=== PATIENT | female | born 1990 | race Caucasian/White ===

== ENCOUNTER 2020-03-15 11:05 | Observation (INO) | payer OTHER ==
[2020-03-15 12:11] VITALS: BP 106/66; PULSE 75
== END 2020-03-15 12:34 | disposition home or self-care (01) ==
LOC: OB 11:05
PROVIDERS: ADMIT Family Medicine; ATTEND Family Medicine
DX: Z34.03 Encounter for supervision of normal first pregnancy, third trimester (principal); Z3A.34 34 weeks gestation of pregnancy
CPT/HCPCS: 59025; 81003; G0378

== ENCOUNTER 2020-03-18 06:50 | Observation (INO) | payer OTHER ==
[2020-03-18 07:38] VITALS: BP 107/60; PULSE 80; O2SAT 97
--- NOTE | 2020-03-18 09:06 | XRAY ---
Indication: Gestational diabetes. Two-dimensional OB ultrasound performed. Comparison: March 03, 2020. Again there is a single viable intrauterine in cephalic presentation. heart rate 135 BPM. anatomy previously documented. Again anterior placenta without abruption/previa. BPD measures 8.45 cm corresponding to 34 weeks 0 days. HC measures 30.83 cm corresponding to 34 weeks 3 days. AC measures 29.12 cm corresponding to 33 weeks 1 days. FL measures 6.47 cm corresponding to 33 weeks 3 days. Estimated weight 4 lbs. 13 oz., +/-12 ounces. Approximately 18th percentile. CALLY is 13 cm. Impression: Again single viable intrauterine with mean gestational age 33 weeks 5 days. Normal progression of . No new or acute findings.
== END 2020-03-18 08:35 | disposition home or self-care (01) ==
LOC: OB 06:50
PROVIDERS: ADMIT Family Medicine; ATTEND Family Medicine
DX: O24.419 Gestational diabetes mellitus in pregnancy, unspecified control (principal); Z3A.34 34 weeks gestation of pregnancy
CPT/HCPCS: 59025; 76816; G0378

== ENCOUNTER 2020-03-18 07:25 | Observation (INO) | payer OTHER ==
[2020-03-25 09:21] VITALS: BP 97/59; PULSE 68
--- NOTE | 2020-03-25 09:27 | XRAY ---
Indication: growth. CALLY. Gestational diabetes. Two-dimensional OB ultrasound performed. Comparison: March 18, 2020. Again there is a single viable intrauterine in cephalic presentation. heart rate 155 BPM. anatomy previously documented. Again anterior placenta without abruption/previa. BPD measures 8.71 cm corresponding to 35 weeks 1 days. HC measures 31.25 cm corresponding to 35 weeks 0 days. AC measures 31.10 cm corresponding to 35 weeks 0 days. FL measures 6.68 cm corresponding to 34 weeks 3 days. Estimated weight 5 lbs. 9 oz., +/-13 ounces. Approximately 33 percentile. CALLY is 11.3 cm. Impression: Again single viable intrauterine with mean gestational age 34 weeks 6 days. Normal progression of . No new or acute findings.
== END 2020-03-25 09:55 | disposition home or self-care (01) ==
LOC: OB 03-25 07:54 → EDSTATUS 03-25 07:54
PROVIDERS: ADMIT Family Medicine; ATTEND Family Medicine
DX: O24.410 Gestational diabetes mellitus in pregnancy, diet controlled (principal)
CPT/HCPCS: 59025; 76816; G0378

== ENCOUNTER 2020-03-21 06:58 | Observation (INO) | payer OTHER ==
[2020-03-21 07:33] VITALS: BP 102/59; PULSE 83
== END 2020-03-21 08:40 | disposition home or self-care (01) ==
LOC: OB 06:58
PROVIDERS: ADMIT Family Medicine; ATTEND Family Medicine
DX: O24.419 Gestational diabetes mellitus in pregnancy, unspecified control (principal); Z3A.34 34 weeks gestation of pregnancy
CPT/HCPCS: 59025; G0378

== ENCOUNTER 2020-03-29 09:57 | Observation (INO) | payer OTHER ==
[2020-03-29 10:43] VITALS: BP 100/64; PULSE 80
== END 2020-03-29 11:15 | disposition home or self-care (01) ==
LOC: MED SURG 09:57 → UNDOADMOB 09:57 → UNDODISOB 11:15
PROVIDERS: ADMIT Family Medicine; ATTEND Family Medicine
DX: O24.419 Gestational diabetes mellitus in pregnancy, unspecified control (principal); Z3A.36 36 weeks gestation of pregnancy
CPT/HCPCS: 59025; G0378

== ENCOUNTER 2020-04-01 08:56 | Observation (INO) | payer OTHER ==
[2020-04-01 09:48] VITALS: BP 103/58; PULSE 90
--- NOTE | 2020-04-01 09:50 | XRAY ---
Indication: Gestational diabetes. Evaluate CALLY. Limited OB ultrasound demonstrates a single viable intrauterine with heart rate 139 BPM. Four-quadrant CALLY is 11.6 cm. This was 11.3 cm March 25, 2020.
== END 2020-04-01 10:20 | disposition home or self-care (01) ==
LOC: EDSTATUS 08:56 → OB 08:57
PROVIDERS: ADMIT Family Medicine; ATTEND Family Medicine
DX: O24.410 Gestational diabetes mellitus in pregnancy, diet controlled (principal); Z3A.36 36 weeks gestation of pregnancy
CPT/HCPCS: 59025; 76815; G0378

== ENCOUNTER 2020-04-05 09:50 | Observation (INO) | payer OTHER ==
[2020-04-05 10:23] VITALS: BP 108/57; PULSE 66; O2SAT 97
== END 2020-04-05 10:50 | disposition home or self-care (01) ==
LOC: OB 09:50
PROVIDERS: ADMIT Family Medicine; ATTEND Family Medicine
DX: O24.419 Gestational diabetes mellitus in pregnancy, unspecified control (principal)
CPT/HCPCS: 59025; G0378

== ENCOUNTER 2020-04-08 08:25 | Observation (INO) | payer OTHER ==
[2020-04-08 10:07] VITALS: BP 106/61; PULSE 71
--- NOTE | 2020-04-08 22:04 | XRAY ---
Exam: Limited OB ultrasound exam for CALLY from 04/08/2020. Comparison: Limited OB ultrasound examination from 04/01/2020. Indication: 30-year-old female with gestational diabetes. The exam is being performed for amniotic fluid index. Findings: The fetus is in the cephalic position with a heart rate of 139 bpm. Amniotic fluid index measures 10.24 cm, previously 11.57 cm on 04/01/2020. This is still within normal limits of range. Impression: 1. 4 quadrant amniotic fluid index measures 10.24 cm, previously 11.57 cm on 04/01/2020. This is still within normal limits.
== END 2020-04-08 10:15 | disposition home or self-care (01) ==
LOC: RAD 08:25 → EDSTATUS 08:32 → OB 08:33
PROVIDERS: ADMIT Family Medicine; ATTEND Family Medicine
DX: O24.410 Gestational diabetes mellitus in pregnancy, diet controlled (principal); Z3A.37 37 weeks gestation of pregnancy
CPT/HCPCS: 59025; 76815; G0378

== ENCOUNTER 2020-04-12 09:59 | Observation (INO) | payer OTHER ==
[2020-04-12 11:24] VITALS: PULSE 71
== END 2020-04-12 10:57 | disposition home or self-care (01) ==
LOC: OB 09:59
PROVIDERS: ADMIT Family Medicine; ATTEND Family Medicine
DX: O24.419 Gestational diabetes mellitus in pregnancy, unspecified control (principal); Z3A.38 38 weeks gestation of pregnancy
CPT/HCPCS: 59025; 81003; G0378

== ENCOUNTER 2020-04-15 08:56 | Observation (INO) | payer OTHER ==
--- NOTE | 2020-04-15 09:39 | XRAY ---
Indication: Gestational diabetes. Evaluate CALLY. Limited OB ultrasound demonstrates single viable intrauterine with heart rate 142 bpm. 4 quadrant CALLY is 13.6 cm. This was 10.2 cm on April 08, 2020.
[2020-04-15 10:00] VITALS: BP 107/59; PULSE 85
== END 2020-04-15 10:15 | disposition home or self-care (01) ==
LOC: OB 08:56
PROVIDERS: ADMIT Family Medicine; ATTEND Family Medicine
DX: O24.419 Gestational diabetes mellitus in pregnancy, unspecified control (principal); Z3A.38 38 weeks gestation of pregnancy
CPT/HCPCS: 59025; 76815; G0378

== ENCOUNTER 2020-04-18 07:17 | Inpatient (IN) | payer OTHER ==
[2020-04-18] MEDS ORDERED: PITOCIN 30 UNITS/ LR 500 ML 30 UNITS/500 ML IV.SOLN. IV SCH (17:00)
[2020-04-18] MEDS ORDERED: Cervidil 10 MG VAG SCH (18:00)
[2020-04-18] MEDS ORDERED: TYLENOL EXTRA STRENGTH 500 MG PO PRN (18:00)
[2020-04-18] MEDS ORDERED: BRETHINE 1 MG/ML SQ PRN (18:00)
[2020-04-18 18:49] LABS: Absolute Neutrophil Ct (ANC) 8.55 (1.4-6.9); BASOPHIL % 0.2 % (0.0-0.4); Basophil (Absolute #) 0.03 (0-0.4); Eosinophil % 1.5 % (0.00-5.0); Eosinophil (Absolute #) 0.19 (0-0.5); Hematocrit 34.9 % (35-47); Hemoglobin 11.2 gm/dl (12.0-16.0); Lymphocyte (Absolute #) 2.96 (1.0-4.6); Lymphocytes % 23.7 % (24.0-44.0); Mean Cell Volume 94.3 fl (78-100); Mean Corpuscular Hemoglobin 30.3 pg (26-32); Mean Corpuscular Hgb Concent. 32.1 g/dl (32-36); Mean Platelet Volume 10.2 fl (7.5-11.0); Monocyte (Absolute #) 0.76 (0.0-1.3); Monocytes % 6.1 % (0.0-12.0); Neutrophil % 68.5 % (36.0-66.0); Platelet Count 331 K/mm3 (150-450); Red Cell Distribution Width 14.3 % (11.5-14.0); White Blood Count 12.5 K/mm3 (4.0-10.5)
[2020-04-18 21:53] LABS: Amphetamine,Urine NEGATIVE (NEGATIVE); Barbiturate,Urine NEGATIVE (NEGATIVE); Benzodiazepine,Urine NEGATIVE (NEGATIVE); Cocaine,Urine NEGATIVE (NEGATIVE); Methadone,Urine NEGATIVE (NEGATIVE); Opiate,Urine NEGATIVE (NEGATIVE); PCP,Urine NEGATIVE (NEGATIVE); THC,Urine NEGATIVE (NEGATIVE)
[2020-04-18 22:12] LABS: Appearance CLEAR (CLEAR); Bilirubin NEGATIVE (NEGATIVE); Blood NEGATIVE Ery/ul (0-5); Epithelial Cells RARE /HPF (FEW); Glucose NEGATIVE (NEGATIVE); Ketones TRACE (NEGATIVE); Leukocyte Esterase NEGATIVE (NEGATIVE); Nitrite NEGATIVE (NEGATIVE); Protein,Urine Dip NEGATIVE (Negative); Specific Gravity 1.019 (1.005-1.025); Urobilinogen NEGATIVE mg/dL (0-1)
[2020-04-19] MEDS ORDERED: PITOCIN 30 UNITS/ LR 500 ML 30 UNITS/500 ML IV.SOLN. IV SCH (08:00)
[2020-04-19] MEDS ORDERED: XYLOCAINE 1% HCL 20 ML MDV IJ PRN (08:00)
[2020-04-19] MEDS ORDERED: Lactated Ringers 1,000 ML IV SCH (08:00)
[2020-04-19] MEDS ORDERED: OB EPIDURAL NAROPIN/SUFENTANIL IN NACL EPIDURAL PRN (10:00)
[2020-04-19] MEDS ORDERED: Lactated Ringers 1,000 ML IV ONE (10:00)
[2020-04-19] MEDS ORDERED: Ephedrine Sulfate 50 MG/ML IV PRN (10:00)
[2020-04-19] MEDS ORDERED: CORTISONE 1% CREAM TP PRN (11:43)
[2020-04-19] MEDS ORDERED: Dermoplast Spray TP PRN (11:43)
[2020-04-19] MEDS ORDERED: Anucort-HC SUPPOSITORY PR PRN (11:43)
[2020-04-19] MEDS ORDERED: Mylicon 80MG PO PRN (11:43)
[2020-04-19] MEDS ORDERED: LANSINOH 40 GM TOP PRN (11:43)
[2020-04-19] MEDS ORDERED: NORCO 5/325 MG PO PRN (11:43)
[2020-04-19] MEDS ORDERED: TUCKS TP PRN (11:43)
[2020-04-19] MEDS ORDERED: Vitamin K 1 MG ONE (14:07)
[2020-04-19] MEDS: MOTRIN 400 MG PO PRN (20:22)
[2020-04-19] MEDS: Colace 100 MG PO SCH (21:58)
[2020-04-20] MEDS: MOTRIN 400 MG PO PRN ×3 (04:31→22:00)
[2020-04-20 05:26] LABS: Absolute Neutrophil Ct (ANC) 10.82 (1.4-6.9); BASOPHIL % 0.1 % (0.0-0.4); Basophil (Absolute #) 0.02 (0-0.4); Eosinophil % 0.9 % (0.00-5.0); Eosinophil (Absolute #) 0.15 (0-0.5); Hematocrit 34.9 % (35-47); Lymphocyte (Absolute #) 3.94 (1.0-4.6); Lymphocytes % 24.5 % (24.0-44.0); Mean Cell Volume 96.7 fl (78-100); Mean Corpuscular Hemoglobin 30.5 pg (26-32); Mean Corpuscular Hgb Concent. 31.5 g/dl (32-36); Mean Platelet Volume 10.8 fl (7.5-11.0); Monocyte (Absolute #) 1.15 (0.0-1.3); Monocytes % 7.2 % (0.0-12.0); Neutrophil % 67.3 % (36.0-66.0); Platelet Count 303 K/mm3 (150-450); Red Blood Count 3.61 M/mm3 (4.1-5.4); Red Cell Distribution Width 14.5 % (11.5-14.0); White Blood Count 16.1 K/mm3 (4.0-10.5)
[2020-04-20] MEDS: Colace 100 MG PO SCH ×2 (09:19→22:00)
[2020-04-20] MEDS: FERREX 150 PO SCH (09:19)
--- NOTE | 2020-04-21 08:01 | PCM.NOTE ---
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
--- NOTE | 2020-04-21 08:04 | PCM.DS ---
Discharge Summary Date of Admission: 04/19/20 07:17 Admitting Physician: WARREN MAR Primary Care Provider: WARREN MAR Allergies Allergies No Known Drug Allergies Allergy (Verified 04/15/20 09:32) Hospital Summary - Hospital Course Hospital Course: pt is a 30 who was admitted on apr 19 for induction with cervidil and subsequently delivered live baby girl without complication at 1109 in am of apr 19. during period pt did very well and is and has a normal hgb level of 11. pt at this time stable for discharge and all questions answered to her satisfaction. pt states having ibuprofen for pain management at home. - Vitals & Intake/Output Vital Signs: Vital Signs Temperature 98 F 04/21/20 01:53 Pulse Rate 63 04/21/20 01:53 Respiratory Rate 16 04/21/20 01:53 Blood Pressure 108/63 04/21/20 01:53 O2 Sat by Pulse Oximetry 96 04/21/20 01:53 Intake & Output: Intake & Output 04/18/20 04/19/20 04/20/20 04/21/20 11:59 11:59 11:59 11:59 Intake Total 1160 2100 2600 Output Total 400 Balance 760 2100 2600 Weight 79.8 kg - Lab Result Diagrams: 04/20/20 05:00 Final Diagnosis/Problem List - Final Discharge Diagnosis/Problem (1) Vaginal delivery Current Visit: Yes Status: Acute Code(s): O80 - ENCOUNTER FOR FULL-TERM UNCOMPLICATED DELIVERY - Discharge Disposition: Home, Self-Care Condition: Stable Prescriptions: No Action Vits W-Ca,Fe,FA(<1Mg) [] 1 each PO DAILY Ferrous Sulfate [Iron] 325 mg PO DAILY Instructions: Gestational Diabetes (Diabetes That Starts During ), Vaginal Delivery, Hyperglycemia, Adult, Diet, Low Blood Sugar, Adult (DC), Breast Care for the Woman, Pumping Breast Milk, Gestational Diabetes (DC), Labor Induction, Dinoprostone, How to Express, Store, and Handle Breast Milk, Exclusive Follow up with: WARREN MAR [Primary Care Provider] -
[2020-04-21] MEDS: FERREX 150 PO SCH (09:08)
[2020-04-21] MEDS: Colace 100 MG PO SCH (09:08)
[2020-04-21] MEDS: MOTRIN 400 MG PO PRN (09:32)
[2020-04-21 12:44] VITALS: BP 99/56; O2SAT 97
[2020-04-21 17:17] VITALS: PULSE 73
== END 2020-04-21 14:20 | disposition home or self-care (01) | DRG 807 ==
LOC: OB 07:17 → UNDOADMOB 16:34 → OB 17:49 → OBSVTOIN 04-19 07:17
PROVIDERS: ADMIT Family Medicine; ATTEND Family Medicine
PROC: 10E0XZZ Delivery of Products of Conception, External Approach (ICD-10-PCS; principal; 2020-04-19)
DX: O71.4 Obstetric high vaginal laceration alone (principal); Z37.0 Single live birth; O69.81X0 Labor and delivery complicated by cord around neck, without compression, not applicable or unspecified; O24.420 Gestational diabetes mellitus in childbirth, diet controlled; Z3A.39 39 weeks gestation of pregnancy
CPT/HCPCS: 36415; 80307; 81001; 82947; 85025; G0378; J2590; A9270-GY

== ENCOUNTER 2022-03-27 22:49 | Emergency (ER) | payer OTHER ==
[2022-03-27] MEDS ORDERED: TYLENOL 325 MG PO STA (23:06)
[2022-03-27] MEDS ORDERED: Sodium Chloride 0.9% 1000 ML 1,000 ML IV STA (23:06)
[2022-03-27 23:14] VITALS: BP 113/68
[2022-03-27] MEDS ORDERED: TYLENOL 325 MG ONE (23:17)
[2022-03-27] MEDS ORDERED: Sodium Chloride 0.9% 1000 ML 1,000 ML ONE (23:17)
[2022-03-27 23:19] LABS: Appearance CLEAR (CLEAR); Bilirubin NEGATIVE (NEGATIVE); Glucose NEGATIVE (NEGATIVE); Ketones NEGATIVE (NEGATIVE)
[2022-03-27 23:20] LABS: Bacteria FEW /HPF (NEGATIVE); Dipstick done @ ? MAIN LAB; Epithelial Cells RARE /HPF (FEW); Nitrite NEGATIVE (NEGATIVE); Protein,Urine Dip NEGATIVE (Negative); RBC NEGATIVE Ery/ul (0-5); Specific Gravity <=1.005 (1.005-1.025); Urobilinogen 0.2 mg/dL (0-1)
[2022-03-27 23:21] LABS: Urine Cultured Indicated? YES
[2022-03-27 23:52] LABS: INFLUENZA A NEGATIVE (NEGATIVE); INFLUENZA B NEGATIVE (NEGATIVE); RESPIRATORY SYNCTIAL VIRUS NEGATIVE (Negative)
[2022-03-27 23:58] LABS: SARS-CoV-2 Xpert Express POSITIVE (NEGATIVE)
[2022-03-28] MEDS ORDERED: Macrobid 100MG Capsule PO ONE (00:01)
[2022-03-28 00:02] VITALS: O2SAT 98
--- NOTE | 2022-03-28 00:02 | ERPHSYRPT ---
- History of Present Illness Time Seen by Provider: 03/27/22 23:57 Source: patient Patient Subjective Stated Complaint: pt states "My heart felt like it was going really fast so I called my OB doc and he told me to come in." Triage Nursing Assessment: Pt ambulatory to bed by self, a & o x3, pt c/o fast heart rate and feeling cold today, pt does have fever of 100.5, pt is 26 weeks and OB doctor is Romaine, HR is around 130 in triage, lung sounds clear, heart tones 145 Physician History: Patient 32-year-old female currently 26 weeks presents to our ED for evaluation of tachycardia and myalgias. Patient dates she was at home. Patient states her watch which monitors her heart rate alerted her that her heart rate was fast. Patient called her OB and advised her to come to our ED. Patient has no complaints of abdominal pain or vaginal discharge at this time. She otherwise feels well. No shortness of breath. No chest pain. No calf pain. Symptoms are mild in intensity. No specific worsening improving factors. Patient voices no other complaints or concerns at this time. Portions of this note were created with voice recognition technology. There may be grammatical, spelling, punctuation or sound alike errors Timing/Duration: today Severity: moderate Modifying Factors: Improves With: nothing Associated Symptoms: other (Diffuse myalgias) Allergies/Adverse Reactions: No Known Drug Allergies Allergy (Verified 03/27/22 23:01) Home Medications: Vits W-Ca,Fe,FA(<1Mg) [] 1 each PO DAILY 03/18/20 [History] Hx Tetanus, Diphtheria Vaccination/Date Given: No Hx Influenza Vaccination/Date Given: Yes Hx Pneumococcal Vaccination/Date Given: No Immunizations Up to Date: No Travel Risk - International Travel Have you traveled outside of the country in past 3 weeks: No - Coronavirus Screening Are you exhibiting any of the following symptoms?: Yes Symptoms: Fever, Headaches/Body Aches/Fatigue - Vaccine Status Have you recieved a Covid-19 vaccination: No - Review of Systems Constitutional: No Symptoms, No Fever, No Chills Eyes: No Symptoms Ears, Nose, & Throat: No Symptoms Respiratory: No Symptoms, No Cough, No Dyspnea Cardiac: No Symptoms, No Chest Pain, No Edema, No Syncope Abdominal/Gastrointestinal: No Symptoms, No Abdominal Pain, No Nausea, No Vomiting, No Diarrhea Genitourinary Symptoms: No Symptoms, No Dysuria Musculoskeletal: No Symptoms, No Back Pain, No Neck Pain Skin: No Symptoms, No Rash Neurological: No Symptoms, No Dizziness, No Focal Weakness, No Sensory Changes Psychological: No Symptoms Endocrine: No Symptoms Hematologic/Lymphatic: No Symptoms Immunological/Allergic: No Symptoms All Other Systems: Reviewed and Negative - Past Medical History Pertinent Past Medical History: No Neurological History: No Pertinent History ENT History: No Pertinent History Cardiac History: No Pertinent History Respiratory History: No Pertinent History Endocrine Medical History: No Pertinent History Musculoskeletal History: No Pertinent History GI Medical History: No Pertinent History History: No Pertinent History Psycho-Social History: No Pertinent History Female Reproductive Disorders: No Pertinent History - Past Surgical History Past Surgical History: Yes Neuro Surgical History: No Pertinent History Cardiac: No Pertinent History Respiratory: No Pertinent History Gastrointestinal: No Pertinent History Genitourinary: No Pertinent History Musculoskeletal: No Pertinent History Female Surgical History: No Pertinent History Other Surgical History: TUBES IN EARS VERY YOUNG CHILD - Social History Smoking Status: Never smoker Exposure to second hand smoke: Yes Drug Use: none Patient Lives Alone: No - Female History Hx Now: Yes - Nursing Vital Signs Nursing Vital Signs: Initial Vital Signs Temperature 100.5 F 03/27/22 23:02 Pulse Rate 132 H 03/27/22 23:02 Respiratory Rate 13 03/27/22 23:02 Blood Pressure 113/68 03/27/22 23:02 O2 Sat by Pulse Oximetry 98 03/27/22 23:02 Pain Scale Pain Intensity 0 - Physical Exam General Appearance: no apparent distress, alert Eye Exam: PERRL/EOMI, eyes nml inspection Ears, Nose, Throat Exam: normal ENT inspection, TMs normal, pharynx normal, moist mucous membranes Neck Exam: normal inspection, non-tender, supple, full range of motion Respiratory Exam: normal breath sounds, lungs clear, airway intact, No respiratory distress Cardiovascular Exam: regular rate/rhythm, normal heart sounds, normal peripheral pulses Gastrointestinal/Abdomen Exam: soft, normal bowel sounds, other (Gravid abdomen), No tenderness, No mass Back Exam: normal inspection, normal range of motion, No CVA tenderness, No vertebral tenderness Extremity Exam: normal inspection, normal range of motion, pelvis stable Neurologic Exam: alert, oriented x 3, cooperative, normal mood/affect, nml cerebellar function, nml station & gait, sensation nml, No motor deficits Skin Exam: normal color, warm, dry, No rash Lymphatic Exam: No adenopathy SpO2 Interpretation: normal SpO2: 98 O2 Delivery: Room Air - Course Nursing assessment & vital signs reviewed: Yes Ordered Tests: Active Orders 24 hr Category Date Time Status EKG-ER Only STAT Care 03/27/22 23:06 Active IV Insertion STAT Care 03/27/22 23:06 Active CULTURE,URINE Stat Lab 03/27/22 23:13 Received UA W/RFX CULTURE Stat Lab 03/27/22 23:13 Completed Medication Summary Generic Name Dose Route Start Last Admin Trade Name Freq PRN Reason Stop Dose Admin Sodium Chloride 1,000 mls @ 999 mls/hr 03/27/22 23:06 03/27/22 23:18 Sodium Chloride 0.9% 1000 Ml IV 03/28/22 00:06 999 mls/hr .Q1H1M STA Administration Discontinued Medications Generic Name Dose Route Start Last Admin Trade Name Freq PRN Reason Stop Dose Admin Acetaminophen 975 mg 03/27/22 23:06 03/27/22 23:17 Acetaminophen 325 Mg Tablet PO 03/27/22 23:07 975 mg STAT STA Administration Acetaminophen Confirm 03/27/22 23:17 Acetaminophen 325 Mg Tablet Administered 03/27/22 23:18 Dose 975 mg .ROUTE .STK-MED ONE Sodium Chloride Confirm 03/27/22 23:17 Sodium Chloride 0.9% 1000 Ml Administered 03/27/22 23:18 Dose 1,000 mls @ ud .ROUTE .STK-MED ONE Lab/Rad Data: Laboratory Results 03/27/22 Range/Units 23:13 Urinalys Dipstick Clnc MAIN LAB Urine Color YELLOW (YELLOW) Urine Appearance CLEAR (CLEAR) Urine pH 6.0 (5-6) Ur Specific [place] <=1.005 A (1.005-1.025) POC Urine Protein Conf NEGATIVE (Negative) Urine Ketones NEGATIVE (NEGATIVE) Urine Nitrite NEGATIVE (NEGATIVE) Urine Bilirubin NEGATIVE (NEGATIVE) Urine Urobilinogen 0.2 (0-1) mg/dL Urine Leukocytes MODERATE A (NEGATIVE) Urine WBC (Auto) 6-10 A (0-5) /HPF Urine RBC (Auto) 3-5 A (0-2) /HPF U Epithel Cells (Auto) RARE (FEW) /HPF Urine Bacteria (Auto) FEW A (NEGATIVE) /HPF Urine RBC NEGATIVE (0-5) Bk/ul Ur Culture Indicated? YES Urine Glucose NEGATIVE (NEGATIVE) mg/dL - Progress Progress: improved Progress Note: Patient reassessed. Heart rate significantly improved after IV fluid administration of Tylenol. Patient states her heart rate was initially 150s. Heart rate down to 113. Patient is COVID-positive. No indication for further work-up at this time. Will discharge home. Patient agrees to follow-up with her primary care doctor within 48 hours for evaluation. 03/27/22 23:59 Urinalysis significant for urinary tract infection. Patient received a dose of Macrobid in our ED. A prescription for the same was forwarded to patient's pharmacy. 03/28/22 00:01 Counseled pt/family regarding: lab results, diagnosis, need for follow-up - Departure Departure Disposition: Home Clinical Impression: COVID-19, Urinary tract infection Condition: Stable Critical Care Time: No Referrals: BENJI ROBERTSON MD [Primary Care Provider] - Follow up/PCP as directed Additional Instructions: Discharge/Care Plan RONI HILL was seen on 03/28/22 in the Emergency Room. The patient was counseled regarding Diagnosis,Lab results, Imaging studies, need for follow up and when to return to the Emergency Room. Prescriptions given: Discharge Note I have spoken with the patient and/or caregivers. I have explained the patient's condition, diagnosis and treatment plan based on the information available to me at this time. I have answered the patient's and/or caregiver's questions and addressed any concerns. The patient and/or caregivers have as good understanding of the patient's diagnosis, condition and treatment plan as can be expected at this point. The vital signs have been stable. The patient's condition is stable and appropriate for discharge from the emergency department. The patient will pursue further outpatient evaluation with the primary care physician or other designated or consulting physician as outlined in the discharge instructions. The patient and/or caregivers are agreeable to this plan of care and follow-up instructions have been explained in detail. The patient and/or caregivers have received these instruction. The patient/and or caregivers are aware that any significant change in condition or worsening of symptoms should prompt an immediate return to this or the closest emergency department or call 911. Prescriptions: Nitrofurantoin Macro 100 mg [Macrobid 100MG Capsule] 100 mg PO BID 7 Days #14 cap
[2022-03-28] MEDS ORDERED: Macrobid 100MG Capsule ONE (00:03)
[2022-03-28 00:16] VITALS: PULSE 113
== END 2022-03-28 00:19 | disposition home or self-care (01) ==
LOC: ED 22:49
DX: O98.512 Other viral diseases complicating pregnancy, second trimester (principal); U07.1 COVID-19; Z3A.26 26 weeks gestation of pregnancy; O23.42 Unspecified infection of urinary tract in pregnancy, second trimester; N39.0 Urinary tract infection, site not specified; R00.0 Tachycardia, unspecified; M79.10 Myalgia, unspecified site; Z28.310 Unvaccinated for COVID-19
CPT/HCPCS: 0241U; 36000; 81015; 87086; 93005; 96360; 99284; 87077; 87186; A9270-GY

== ENCOUNTER 2022-06-23 10:29 | Observation (INO) | payer OTHER ==
[2022-06-23 10:52] VITALS: BP 113/69
[2022-06-23 11:14] VITALS: PULSE 69
[2022-06-23 12:04] LABS: Amphetamine,Urine NEGATIVE (NEGATIVE); Barbiturate,Urine NEGATIVE (NEGATIVE); Benzodiazepine,Urine NEGATIVE (NEGATIVE); Cocaine,Urine NEGATIVE (NEGATIVE); Methadone,Urine NEGATIVE (NEGATIVE); Opiate,Urine NEGATIVE (NEGATIVE); PCP,Urine NEGATIVE (NEGATIVE); THC,Urine NEGATIVE (NEGATIVE)
== END 2022-06-23 13:25 | disposition home or self-care (01) ==
LOC: OB 10:29
PROVIDERS: ADMIT Family Medicine; ATTEND Family Medicine
DX: Z34.83 Encounter for supervision of other normal pregnancy, third trimester (principal); Z3A.38 38 weeks gestation of pregnancy
CPT/HCPCS: 80307; 99213; G0378

== ENCOUNTER 2022-06-25 21:26 | Observation (INO) | payer OTHER ==
[2022-06-26 00:23] VITALS: BP 104/61; PULSE 79
== END 2022-06-26 00:37 | disposition home or self-care (01) ==
LOC: OB 21:26
PROVIDERS: ADMIT Family Medicine; ATTEND Family Medicine
DX: Z34.83 Encounter for supervision of other normal pregnancy, third trimester (principal); Z3A.38 38 weeks gestation of pregnancy
CPT/HCPCS: 99213; G0378

== ENCOUNTER 2022-07-02 04:53 | Inpatient (IN) | payer OTHER ==
[2022-07-02 05:46] LABS: Absolute Neutrophil Ct (ANC) 9.25 x10^3/uL (1.4-6.9); BASOPHIL % 0.4 % (0.0-0.4); Basophil (Absolute #) 0.05 x10^3/uL (0-0.4); Eosinophil % 1.8 % (0.00-5.0); Eosinophil (Absolute #) 0.24 x10^3/uL (0-0.5); Hematocrit 32.1 % (35-47); Hemoglobin 10.3 g/dL (12.0-16.0); IMMATURE GRAN % 0.7 % (0.00-0.4); Lymphocyte (Absolute #) 3.18 x10^3/uL (1.0-4.6); Lymphocytes % 23.5 % (24.0-44.0); Mean Cell Volume 89.9 fL (78-100); Mean Corpuscular Hemoglobin 28.9 pg (26-32); Mean Corpuscular Hgb Concent. 32.1 g/dL (32-36); Monocyte (Absolute #) 0.72 x10^3/uL (0.0-1.3); Monocytes % 5.3 % (0.0-12.0); Neutrophil % 68.3 % (36.0-66.0); Platelet Count 341 x10^3/uL (150-450); Red Blood Count 3.57 x10^6/uL (4.1-5.4); Red Cell Distribution Width 13.9 % (11.5-14.0); White Blood Count 13.5 x10^3/uL (4.0-10.5)
[2022-07-02] MEDS ORDERED: Zofran 4 MG/2 ML VIAL IV PRN (06:00)
[2022-07-02] MEDS: Lactated Ringers 1,000 ML IV SCH ×2 (06:09→20:24)
[2022-07-02] MEDS ORDERED: PITOCIN 30 UNITS/ LR 500 ML 30 UNITS/500 ML PLAST..BAG IV SCH ×2 (06:30→13:00)
[2022-07-02] MEDS ORDERED: BRETHINE 1 MG/ML SQ PRN (06:30)
[2022-07-02 06:49] LABS: ABO TYPING AB
[2022-07-02 06:50] LABS: Antibody Screen NEGATIVE (NEGATIVE); RH TYPING POSITIVE
[2022-07-02 07:45] LABS: Appearance Clear (Clear); Bacteria None Seen /HPF (None Seen); Bilirubin Negative (Negative); Blood Negative (Negative); Epithelial Cells Rare /HPF (None Seen); Glucose, Urine Negative (Negative); Hyaline Casts NONE SEEN /LPF (0-2); Ketones Negative (Negative); Leukocyte Esterase Small (Negative); Nitrite Negative (Negative); Ph 6.5 (4.6-8.0); Protein,Urine Dip Negative (Negative); RBC 0-2 /HPF (0-5); Urobilinogen 0.2 mg/dL (0.2); WBC 0-2 /HPF (0-5)
[2022-07-02 07:49] LABS: ADD URINE CULTURE? NO (NO); Amphetamine,Urine NEGATIVE (NEGATIVE); Barbiturate,Urine NEGATIVE (NEGATIVE); Benzodiazepine,Urine NEGATIVE (NEGATIVE); Cocaine,Urine NEGATIVE (NEGATIVE); Methadone,Urine NEGATIVE (NEGATIVE); Opiate,Urine NEGATIVE (NEGATIVE); PCP,Urine NEGATIVE (NEGATIVE); THC,Urine NEGATIVE (NEGATIVE)
[2022-07-02] MEDS ORDERED: XYLOCAINE 1% HCL 20 ML MDV IJ PRN (08:00)
[2022-07-02] MEDS ORDERED: NORCO 5/325 MG PO PRN (10:14)
[2022-07-02] MEDS ORDERED: LANSINOH 40 GM TOP PRN (10:14)
[2022-07-02] MEDS ORDERED: Anucort-HC SUPPOSITORY PR PRN (10:14)
[2022-07-02] MEDS ORDERED: Dulcolax 10 MG SUPP PR PRN (10:14)
[2022-07-02] MEDS ORDERED: Ambien 10 MG PO PRN (10:14)
[2022-07-02] MEDS ORDERED: CORTISONE 1% CREAM TP PRN (10:14)
[2022-07-02] MEDS ORDERED: TUCKS TP PRN (10:14)
[2022-07-02] MEDS ORDERED: Dermoplast Spray TP PRN (10:14)
[2022-07-02] MEDS ORDERED: Mylicon 80MG PO PRN (10:14)
[2022-07-02] MEDS: TYLENOL EXTRA STRENGTH 500 MG PO PRN ×3 (11:24→22:00)
[2022-07-02] MEDS ORDERED: Adacel Vial IM ONE (12:00)
[2022-07-02] MEDS: MOTRIN 400 MG PO PRN (18:13)
[2022-07-02] MEDS: Docusate Sodium 100 MG PO SCH (22:00)
[2022-07-03] MEDS: MOTRIN 400 MG PO PRN ×3 (02:09→17:55)
[2022-07-03 04:55] LABS: Absolute Neutrophil Ct (ANC) 9.82 x10^3/uL (1.4-6.9); BASOPHIL % 0.4 % (0.0-0.4); Basophil (Absolute #) 0.06 x10^3/uL (0-0.4); Eosinophil % 1.6 % (0.00-5.0); Eosinophil (Absolute #) 0.23 x10^3/uL (0-0.5); Hematocrit 30.9 % (35-47); Hemoglobin 9.8 g/dL (12.0-16.0); IMMATURE GRAN % 0.7 % (0.00-0.4); Lymphocyte (Absolute #) 3.61 x10^3/uL (1.0-4.6); Lymphocytes % 24.5 % (24.0-44.0); Mean Cell Volume 90.6 fL (78-100); Mean Corpuscular Hemoglobin 28.7 pg (26-32); Mean Corpuscular Hgb Concent. 31.7 g/dL (32-36); Mean Platelet Volume 10.2 fL (7.5-11.0); Monocyte (Absolute #) 0.89 x10^3/uL (0.0-1.3); Monocytes % 6.1 % (0.0-12.0); Neutrophil % 66.7 % (36.0-66.0); Platelet Count 305 x10^3/uL (150-450); Red Blood Count 3.41 x10^6/uL (4.1-5.4); White Blood Count 14.7 x10^3/uL (4.0-10.5)
[2022-07-03 08:08] LABS: HBsAg Screen Negative (Negative)
[2022-07-03] MEDS: Docusate Sodium 100 MG PO SCH ×2 (09:22→22:05)
[2022-07-03] MEDS: FERREX 150 PO SCH (09:22)
[2022-07-03] MEDS: TYLENOL EXTRA STRENGTH 500 MG PO PRN ×2 (12:52→22:08)
[2022-07-04] MEDS: FERREX 150 PO SCH (08:32)
[2022-07-04] MEDS: Docusate Sodium 100 MG PO SCH (08:33)
[2022-07-04] MEDS: MOTRIN 400 MG PO PRN (08:33)
--- NOTE | 2022-07-04 09:51 | PCM.DS ---
Discharge Summary Date of Admission: 07/02/22 08:02 Admitting Physician: BENJI ROBERTSON Primary Care Provider: BENJI ROBERTSON Allergies Allergies No Known Drug Allergies Allergy (Verified 07/02/22 05:21) Hospital Summary - Hospital Course Hospital Course: patient induced and had an uncomplicated vaginal delivery at 39wks. well, mild lochia and pain is well controlled. doing great, had a mild left vaginal wall laceration first degree repaired at delivery - Vitals & Intake/Output Vital Signs: Vital Signs Temperature 97.9 F 07/04/22 02:00 Pulse Rate 72 07/04/22 02:00 Respiratory Rate 16 07/04/22 02:00 Blood Pressure 96/57 07/04/22 02:00 O2 Sat by Pulse Oximetry 97 07/04/22 02:00 Intake & Output: Intake & Output 07/01/22 07/02/22 07/03/22 07/04/22 11:59 11:59 11:59 11:59 Intake Total 2300 2200 Balance 2300 2200 Weight 85.275 kg - Lab Result Diagrams: 07/03/22 04:34 Discharge Exam General Appearance: no apparent distress Neurologic Exam: alert, oriented x 3 Respiratory Exam: normal breath sounds, lungs clear, No respiratory distress Cardiovascular Exam: regular rate/rhythm, normal heart sounds Gastrointestinal/Abdomen Exam: soft, No tenderness, No mass Final Diagnosis/Problem List - Final Discharge Diagnosis/Problem (1) Vaginal delivery Current Visit: No Status: Acute Code(s): O80 - ENCOUNTER FOR FULL-TERM UNCOMPLICATED DELIVERY (2) First degree perineal laceration during delivery Current Visit: Yes Status: Acute Code(s): O70.0 - FIRST DEGREE PERINEAL LACERATION DURING DELIVERY - Discharge Disposition: Home, Self-Care Condition: Stable Prescriptions: Continue Vits W-Ca,Fe,FA(<1Mg) [] 1 each PO DAILY Changed Ferrous Sulfate 325 mg PO DAILY #0 Additional Instructions: take iron once daily for 1 month, continue vitamin while . f/u in 4-6 weeks for visit Follow up with: BENJI ROBERTSON MD [Primary Care Provider] - Forms: OB Discharge Instructions
[2022-07-04 14:09] VITALS: BP 100/63; PULSE 67; O2SAT 99
== END 2022-07-04 11:30 | disposition home or self-care (01) | DRG 807 ==
LOC: OB 04:53 → OBSVTOIN 08:02 → OB 08:02
PROVIDERS: ADMIT Family Medicine; ATTEND Family Medicine
PROC: 10E0XZZ Delivery of Products of Conception, External Approach (ICD-10-PCS; principal; 2022-07-02)
PROC: 0HQ9XZZ Repair Perineum Skin, External Approach (ICD-10-PCS; 2022-07-02)
DX: O70.0 First degree perineal laceration during delivery (principal); Z37.0 Single live birth; Z3A.39 39 weeks gestation of pregnancy; Z20.828 Contact with and (suspected) exposure to other viral communicable diseases
CPT/HCPCS: 36415; 80307; 81001; 85025; 86850; 86900; 86901; 87340; 90471; 90715; J2590; A9270-GY